=== PATIENT | female | born 1980 | race Caucasian/White ===

== ENCOUNTER 2017-11-08 10:15 | Emergency (ER) | payer MEDICAID, OTHER ==
[~2017-11-08] VITALS: Ht 162.6 cm; Wt 50.0 kg
[~2017-11-08 10:15] MED LIST: CIPR-278 PO; FERR-89 PO; OLAN10TA3 PO; OLAN5TAB2 PO
[2017-11-08 13:01] LABS: BASOPHILS % (AUTO) 0.7 % (0.0-2.0); EOSINOPHILS % (AUTO) 1.5 % (1.0-6.0); HEMATOCRIT 38.6 % (36-46); HEMOGLOBIN 13.2 g/dL (12.0-16.0); LYMPHOCYTES # (AUTO) 1.9 K/uL (1.0-4.8); MEAN CORPUSCULAR HEMOGLOBIN 32.9 pg (26.0-34.0); MEAN CORPUSCULAR HGB CONC 34.3 G/dL (31.0-37.0); MEAN CORPUSCULAR VOLUME 96 fL (80-100); MONOCYTES # (AUTO) 0.6 K/uL (0.1-1.0); MONOCYTES % (AUTO) 7.8 % (2.0-9.0); NEUTROPHILS # (AUTO) 5.6 K/uL (1.8-7.7); PLATELET COUNT (AUTO) 264 K/uL (150-450); RED BLOOD CELL COUNT(AUTO) 4.02 MIL/uL (4.00-5.20); RED CELL DISTRIBUTION WIDTH 13.9 % (11.5-14.5); WHITE BLOOD COUNT (AUTO) 8.3 K/uL (4.5-11.0)
[2017-11-08 13:12] LABS: ANION GAP 8 mmol/L (8-16); CALCIUM, TOTAL 8.5 mg/dL (8.8-10.5); CARBON DIOXIDE 28 mmol/L (22-29); CHLORIDE 103 mmol/L (98-107); CREATININE 0.71 mg/dL (0.60-1.30); GLOMERULAR FILTR. RATE CALC > 60 mL/min (>60); POTASSIUM 3.7 mmol/L (3.5-5.1); SODIUM SERUM 139 mmol/L (136-145); UREA NITROGEN, BLOOD 12 mg/dL (7-18)
[2017-11-08 13:17] LABS: ALANINE AMINOTRANSFERASE 29 U/L (12-78); ALBUMIN 3.6 g/dL (3.4-5.0); ASPARTATE AMINOTRANSFERASE 19 U/L (15-37); BILIRUBIN,TOTAL 0.3 mg/dL (0.1-1.0); TOTAL PROTEIN, SERUM 7.1 g/dL (6.4-8.2)
[2017-11-08 13:55] VITALS: BP 111/68
== END 2017-11-08 14:32 | disposition home or self-care (01) ==
LOC: EEVIPCON 10:15 → EMS 10:18
DX: F20.1 Disorganized schizophrenia (principal); F15.10 Other stimulant abuse, uncomplicated; F10.10 Alcohol abuse, uncomplicated; F31.9 Bipolar disorder, unspecified; F17.210 Nicotine dependence, cigarettes, uncomplicated; Z59.0 Homelessness; Y90.0 Blood alcohol level of less than 20 mg/100 ml
CPT/HCPCS: 36415; 80053; 80307; 85025; 99285; G0480

== ENCOUNTER 2017-11-08 21:53 | Inpatient (IN) | payer MEDICAID, OTHER ==
[~2017-11-08] VITALS: Ht 162.6 cm; Wt 56.7 kg
[2017-11-09] MEDS ORDERED: ZOLPIDEM TARTRATE 10 MG TABLET PO PRN (01:00)
[2017-11-09] MEDS ORDERED: HALOPERIDOL 5 MG TABLET PO PRN (01:00)
[2017-11-09] MEDS ORDERED: IBUPROFEN 600 MG TABLET PO ONE (01:15)
[2017-11-09 01:26] LABS: APPEARANCE,URINE CLEAR (CLEAR); GLUCOSE, URINE (UA) NEGATIVE (NEGATIVE); KETONES,URINE 15 mg/dL (NEGATIVE); LEUKOCYTE ESTERASE ,URINE NEGATIVE (NEGATIVE); OCCULT BLOOD,URINE NEGATIVE (NEGATIVE); PH,URINE 6.5 (5.0-8.0); PROTEIN,URINE NEGATIVE (NEGATIVE)
[2017-11-09 01:27] LABS: ADD UA MICROSCOPIC NO
[2017-11-09 02:57] VITALS: BP 116/71
[2017-11-09] MEDS: LORazepam 2 MG TABLET PO PRN (03:27)
[2017-11-09 07:55] LABS: CHOL/HDL RATIO 3.1 (3.9-5.7); THYROID STIMULATING HORMONE 0.6 uIU/mL (0.36-3.74)
[2017-11-09 08:09] VITALS: BP 118/62
[2017-11-09 09:44] VITALS: BP 118/62
[2017-11-09 16:04] VITALS: BP 121/72
[2017-11-09 16:40] VITALS: BP 121/72
[2017-11-09] MEDS ORDERED: IBUPROFEN 400 MG TABLET PO PRN (16:45)
[2017-11-09] MEDS ORDERED: ACETAMINOPHEN 325 MG TABLET PO PRN (16:45)
[2017-11-09] MEDS: FERROUS SULFATE 325 MG EC TABLET PO SCH (17:10)
[2017-11-09] MEDS: OLANZapine 7.5 MG TABLET PO SCH (20:18)
[2017-11-10] MEDS: FERROUS SULFATE 325 MG EC TABLET PO SCH ×3 (06:37→17:00)
[2017-11-10 06:44] VITALS: BP 120/60
[2017-11-10] MEDS: LORazepam 2 MG TABLET PO PRN (08:08)
[2017-11-10 08:21] LABS: BASOPHILS % (AUTO) 0.6 % (0.0-2.0); EOSINOPHILS % (AUTO) 1.3 % (1.0-6.0); HEMATOCRIT 38.4 % (36-46); HEMOGLOBIN 13.3 g/dL (12.0-16.0); LYMPHOCYTES # (AUTO) 1.8 K/uL (1.0-4.8); LYMPHOCYTES % (AUTO) 31.1 % (22.0-44.0); MEAN CORPUSCULAR HEMOGLOBIN 33.2 pg (26.0-34.0); MEAN CORPUSCULAR HGB CONC 34.7 G/dL (31.0-37.0); MEAN CORPUSCULAR VOLUME 96 fL (80-100); MONOCYTES # (AUTO) 0.4 K/uL (0.1-1.0); MONOCYTES % (AUTO) 7.5 % (2.0-9.0); NEUTROPHILS # (AUTO) 3.4 K/uL (1.8-7.7); NEUTROPHILS % (AUTO) 59.5 % (40.0-70.0); PLATELET COUNT (AUTO) 237 K/uL (150-450); RED BLOOD CELL COUNT(AUTO) 4.02 MIL/uL (4.00-5.20); WHITE BLOOD COUNT (AUTO) 5.8 K/uL (4.5-11.0)
[2017-11-10 08:23] VITALS: BP 100/59
[2017-11-10 16:25] VITALS: BP 109/64
[2017-11-10] MEDS: NICOTINE 14 MG/24 HOUR PATCH TD SCH (16:36)
[2017-11-10] MEDS: OLANZapine 7.5 MG TABLET PO SCH (21:00)
[2017-11-11 06:18] VITALS: BP 120/80
[2017-11-11] MEDS: FERROUS SULFATE 325 MG EC TABLET PO SCH ×2 (07:02→16:32)
[2017-11-11] MEDS: GABAPENTIN 400 MG CAPSULE PO SCH ×3 (08:43→17:00)
[2017-11-11] MEDS: DULoxetine HCL 30 MG CAPSULE PO SCH (08:43)
[2017-11-11 08:44] VITALS: BP 121/68
[2017-11-11] MEDS: NICOTINE 14 MG/24 HOUR PATCH TD SCH (08:52)
[2017-11-11 16:08] VITALS: BP 124/71
[2017-11-11] MEDS: LORazepam 2 MG TABLET PO PRN (19:57)
[2017-11-11] MEDS: OLANZapine 7.5 MG TABLET PO SCH (20:38)
[2017-11-12 01:27] VITALS: BP 112/73
[2017-11-12] MEDS: FERROUS SULFATE 325 MG EC TABLET PO SCH ×2 (06:39→16:30)
[2017-11-12 08:04] VITALS: BP 122/69
[2017-11-12] MEDS: GABAPENTIN 400 MG CAPSULE PO SCH ×3 (08:29→16:30)
[2017-11-12] MEDS: NICOTINE 14 MG/24 HOUR PATCH TD SCH (08:29)
[2017-11-12] MEDS: DULoxetine HCL 30 MG CAPSULE PO SCH (08:29)
[2017-11-12] MEDS ORDERED: OLAN7.5T2 PO (12:36)
[2017-11-12 16:01] VITALS: BP 104/63
[2017-11-12] MEDS: LORazepam 2 MG TABLET PO PRN (16:27)
[2017-11-12] MEDS: OLANZapine 7.5 MG TABLET PO SCH (20:38)
[2017-11-13] MEDS: FERROUS SULFATE 325 MG EC TABLET PO SCH ×2 (06:37→16:13)
[2017-11-13 06:57] VITALS: BP 100/63
[2017-11-13] MEDS: GABAPENTIN 400 MG CAPSULE PO SCH ×3 (08:20→16:13)
[2017-11-13] MEDS: DULoxetine HCL 30 MG CAPSULE PO SCH (08:20)
[2017-11-13] MEDS: NICOTINE 14 MG/24 HOUR PATCH TD SCH (08:52)
[2017-11-13 14:52] VITALS: BP 111/67
[2017-11-13 16:00] VITALS: BP 103/64
[2017-11-13] MEDS: OLANZapine 7.5 MG TABLET PO SCH (20:06)
[2017-11-14 05:59] VITALS: BP 124/74
[2017-11-14] MEDS: FERROUS SULFATE 325 MG EC TABLET PO SCH ×2 (07:00→16:15)
[2017-11-14] MEDS: DULoxetine HCL 30 MG CAPSULE PO SCH (08:49)
[2017-11-14] MEDS: GABAPENTIN 400 MG CAPSULE PO SCH ×3 (08:50→16:15)
[2017-11-14] MEDS: NICOTINE 14 MG/24 HOUR PATCH TD SCH (09:00)
[2017-11-14 09:13] VITALS: BP 121/73
[2017-11-14 16:02] VITALS: BP 107/55
[2017-11-14] MEDS: OLANZapine 7.5 MG TABLET PO SCH (20:12)
[2017-11-15 06:20] VITALS: BP 104/63
[2017-11-15] MEDS: FERROUS SULFATE 325 MG EC TABLET PO SCH (06:31)
[2017-11-15] MEDS: NICOTINE 14 MG/24 HOUR PATCH TD SCH (08:44)
[2017-11-15] MEDS: DULoxetine HCL 30 MG CAPSULE PO SCH (08:44)
[2017-11-15] MEDS: GABAPENTIN 400 MG CAPSULE PO SCH ×2 (08:44→12:21)
[2017-11-15 09:51] VITALS: BP 104/60
[2017-11-15] MEDS ORDERED: DULO30CA2 PO (13:05)
[2017-11-15] MEDS ORDERED: GABA-533 PO (13:05)
== END 2017-11-15 15:26 | disposition home or self-care (01) | DRG 750 ==
LOC: EMS 21:54 → B3A 11-09 01:49
PROVIDERS: ADMIT Psychiatry & Neurology Psychiatry; ATTEND Psychiatry & Neurology Psychiatry
DX: F25.9 Schizoaffective disorder, unspecified (principal); E83.51 Hypocalcemia; D64.9 Anemia, unspecified; F19.10 Other psychoactive substance abuse, uncomplicated; G89.29 Other chronic pain; F17.210 Nicotine dependence, cigarettes, uncomplicated; G47.00 Insomnia, unspecified; Z59.0 Homelessness; Z79.899 Other long term (current) drug therapy
CPT/HCPCS: 84443; 99285

== ENCOUNTER 2020-06-24 10:57 | Emergency (ER) | payer SELFPAY ==
[~2020-06-24] VITALS: Ht 162.6 cm; Wt 52.3 kg
[~2020-06-24 10:57] MED LIST changes: -CIPR-278 PO; +DULO30CA96 PO; -FERR-89 PO; +GABA-1201 PO; -OLAN10TA3 PO; -OLAN5TAB2 PO; +OLAN7.5T2 PO
[2020-06-24] MEDS ORDERED: IBUPROFEN 600 MG TABLET PO ONE (11:45)
[2020-06-24 12:06] VITALS: BP 117/76
== END 2020-06-24 12:08 | disposition home or self-care (01) ==
LOC: EMS 10:59
DX: F20.9 Schizophrenia, unspecified (principal); F31.9 Bipolar disorder, unspecified; F15.90 Other stimulant use, unspecified, uncomplicated; F17.210 Nicotine dependence, cigarettes, uncomplicated; Z79.899 Other long term (current) drug therapy

== ENCOUNTER 2023-03-29 03:21 | Inpatient (IN) | payer MEDICAID ==
[~2023-03-29] VITALS: Ht 162.6 cm; Wt 63.5 kg
[~2023-03-29 03:21] MED LIST changes: +DULO-114 PO; -DULO30CA96 PO; -OLAN7.5T2 PO; +OLAN7.5T22 PO
[2023-03-29] MEDS: LORazepam 2 MG TABLET PO PRN ×3 (12:36→20:12)
[2023-03-29 13:12] VITALS: BP 124/86
[2023-03-29] MEDS ORDERED: PERMETHRIN 5% 60 GM CREAM TP ONE (14:15)
[2023-03-29] MEDS ORDERED: MAG HYDROX/AL HYDROX/SIMETH ES 30 ML SUSPENSION UDCUP PO PRN (14:30)
[2023-03-29] MEDS ORDERED: DOCUSATE SODIUM 100 MG CAPSULE PO PRN (14:30)
[2023-03-29] MEDS ORDERED: MAGNESIUM HYDROXIDE SUSPENSION 30 ML UDCUP PO PRN (14:30)
[2023-03-29] MEDS ORDERED: PETROLATUM,WHITE 28 GM JELLY TP PRN (14:30)
[2023-03-29] MEDS ORDERED: LOPERAMIDE HCL 2 MG CAPSULE PO PRN (14:30)
[2023-03-29] MEDS ORDERED: GuaiFENesin/D-METHORPHAN [SUGAR-FREE] 200-20MG/10 ML SYRUP UDCUP PO PRN (14:30)
[2023-03-29] MEDS ORDERED: CloNIDine HCL 0.1 MG TABLET PO PRN (14:30)
[2023-03-29] MEDS ORDERED: ONDANSETRON HCL 4 MG TABLET PO PRN (14:30)
[2023-03-29] MEDS ORDERED: IBUPROFEN 400 MG TABLET PO PRN (14:30)
[2023-03-29] MEDS ORDERED: ALBUTEROL SULFATE HFA 90 MCG/PUFF 8 GM INHALER IH PRN (14:30)
[2023-03-29] MEDS ORDERED: ACETAMINOPHEN 325 MG TABLET PO PRN (14:30)
[2023-03-29] MEDS ORDERED: NICOTINE 14 MG/24 HOUR PATCH TD PRN (14:30)
[2023-03-29] MEDS: GABAPENTIN 400 MG CAPSULE PO SCH (16:02)
[2023-03-29 20:00] VITALS: BP 120/90
[2023-03-29] MEDS: ZOLPIDEM TARTRATE 10 MG TABLET PO PRN (20:12)
[2023-03-30 07:22] LABS: BASOPHILS % (AUTO) 0.8 % (0.0-2.0); EOSINOPHILS % (AUTO) 4.1 % (1.0-6.0); HEMATOCRIT 32.5 % (36-46); HEMOGLOBIN 10.8 g/dL (12.0-16.0); LYMPHOCYTES # (AUTO) 1.7 K/uL (1.0-4.8); LYMPHOCYTES % (AUTO) 41.7 % (22.0-44.0); MEAN CORPUSCULAR HEMOGLOBIN 27.8 pg (26.0-34.0); MEAN CORPUSCULAR HGB CONC 33.1 G/dL (31.0-37.0); MEAN CORPUSCULAR VOLUME 84 fL (80-100); MONOCYTES # (AUTO) 0.4 K/uL (0.1-1.0); MONOCYTES % (AUTO) 10.6 % (2.0-9.0); NEUTROPHILS # (AUTO) 1.8 K/uL (1.8-7.7); NEUTROPHILS % (AUTO) 42.8 % (40.0-70.0); PLATELET COUNT (AUTO) 233 K/uL (150-450); RED BLOOD CELL COUNT(AUTO) 3.88 MIL/uL (4.00-5.20); RED CELL DISTRIBUTION WIDTH 16.1 % (11.5-14.5)
[2023-03-30 07:53] LABS: ALANINE AMINOTRANSFERASE 15 U/L (12-78); ALBUMIN 3.2 g/dL (3.4-5.0); ALKALINE PHOSPHATASE 56 U/L (46-116); ANION GAP 9 mmol/L (8-16); ASPARTATE AMINOTRANSFERASE 16 U/L (15-37); BILIRUBIN,TOTAL 0.3 mg/dL (0.1-1.0); CALCIUM, TOTAL 8.4 mg/dL (8.8-10.5); CARBON DIOXIDE 24 mmol/L (22-29); CHLORIDE 104 mmol/L (98-107); CREATININE 0.57 mg/dL (0.60-1.30); FREE T4 (FREE THYROXINE) 0.95 ng/dL (0.76-1.46); GLOMERULAR FILTR. RATE CALC > 60 mL/min (>60); GLUCOSE,RANDOM 106 mg/dL (70-110); POTASSIUM 4.1 mmol/L (3.5-5.1); SODIUM SERUM 137 mmol/L (136-145); THYROID STIMULATING HORMONE 0.86 uIU/mL (0.36-3.74); TOTAL PROTEIN, SERUM 6.5 g/dL (6.4-8.2)
[2023-03-30 08:04] LABS: HEMOGLOBIN A1C 5.1 % (3.8-5.6)
[2023-03-30 08:41] LABS: PLATELET MORPHOLOGY COMMENT GIANT PLTS PRESENT
[2023-03-30] MEDS: GABAPENTIN 400 MG CAPSULE PO SCH ×3 (08:54→16:29)
[2023-03-30] MEDS: DULoxetine HCL 20 MG CAPSULE PO SCH (12:29)
[2023-03-30] MEDS: LORazepam 2 MG TABLET PO PRN ×2 (12:29→16:35)
[2023-03-30 15:02] LABS: AMPHET/METH SCREEN,URINE NEGATIVE (NEGATIVE); BARBITURATE SCREEN, URINE NEGATIVE (NEGATIVE); BENZODIAZEPINES SCREEN,URINE NEGATIVE (NEGATIVE); CANNABINOID SCREEN,URINE NEGATIVE (NEGATIVE); COCAINE SCREEN,URINE NEGATIVE (NEGATIVE); METHADONE SCREEN, URINE NEGATIVE (NEGATIVE); OPIATE SCREEN,URINE NEGATIVE (NEGATIVE); PHENCYCLIDINE SCREEN,URINE NEGATIVE (NEGATIVE)
[2023-03-30] MEDS: OLANZapine 7.5 MG TABLET PO SCH (20:41)
[2023-03-30 21:23] VITALS: BP 114/63
[2023-03-31 02:06] LABS: HEPATITIS C AB (EIA) Reactive (Non Reactive)
[2023-03-31] MEDS: DULoxetine HCL 20 MG CAPSULE PO SCH (08:27)
[2023-03-31] MEDS: GABAPENTIN 400 MG CAPSULE PO SCH ×3 (08:28→16:14)
[2023-03-31 08:54] VITALS: BP 100/66
[2023-03-31] MEDS: OLANZapine 7.5 MG TABLET PO SCH (20:30)
[2023-04-01 08:24] VITALS: BP 100/60
[2023-04-01] MEDS: DULoxetine HCL 20 MG CAPSULE PO SCH (08:29)
[2023-04-01] MEDS: GABAPENTIN 400 MG CAPSULE PO SCH ×3 (08:29→16:28)
[2023-04-01] MEDS: OLANZapine 7.5 MG TABLET PO SCH (20:06)
[2023-04-02] MEDS: DULoxetine HCL 20 MG CAPSULE PO SCH (08:07)
[2023-04-02] MEDS: GABAPENTIN 400 MG CAPSULE PO SCH ×3 (08:07→16:02)
[2023-04-02 08:40] VITALS: BP 104/68
[2023-04-02 08:41] VITALS: BP 104/68
[2023-04-02 20:00] VITALS: BP 101/62
[2023-04-02] MEDS: OLANZapine 7.5 MG TABLET PO SCH (20:10)
[2023-04-03] MEDS: DULoxetine HCL 20 MG CAPSULE PO SCH (08:34)
[2023-04-03] MEDS: GABAPENTIN 400 MG CAPSULE PO SCH ×3 (08:34→16:28)
[2023-04-03 08:53] VITALS: BP 93/63
[2023-04-03 13:06] LABS: HEPATITIS C RT-PCR,QNT HCV Not Detected IU/mL
[2023-04-03 20:26] VITALS: BP 102/67
[2023-04-03] MEDS: OLANZapine 7.5 MG TABLET PO SCH (20:27)
[2023-04-04] MEDS: GABAPENTIN 400 MG CAPSULE PO SCH ×3 (08:14→16:20)
[2023-04-04] MEDS: DULoxetine HCL 20 MG CAPSULE PO SCH (08:14)
[2023-04-04 08:18] VITALS: BP 100/70
[2023-04-04 20:14] VITALS: BP 97/56
[2023-04-04] MEDS: OLANZapine 7.5 MG TABLET PO SCH (20:40)
[2023-04-05] MEDS: DULoxetine HCL 20 MG CAPSULE PO SCH (09:00)
[2023-04-05] MEDS: GABAPENTIN 400 MG CAPSULE PO SCH ×3 (09:00→17:21)
[2023-04-05] MEDS: LORazepam 2 MG TABLET PO PRN ×2 (13:38→20:50)
[2023-04-05] MEDS: ZOLPIDEM TARTRATE 10 MG TABLET PO PRN (20:50)
[2023-04-05] MEDS: OLANZapine 7.5 MG TABLET PO SCH (20:50)
[2023-04-05 21:09] VITALS: BP 96/63
[2023-04-06] MEDS: DULoxetine HCL 20 MG CAPSULE PO SCH (08:46)
[2023-04-06] MEDS: GABAPENTIN 400 MG CAPSULE PO SCH ×3 (08:46→16:00)
[2023-04-06] MEDS: OLANZapine 7.5 MG TABLET PO SCH (20:39)
[2023-04-06 21:03] VITALS: BP 103/56
[2023-04-07] MEDS: GABAPENTIN 400 MG CAPSULE PO SCH ×3 (08:37→16:02)
[2023-04-07] MEDS: DULoxetine HCL 20 MG CAPSULE PO SCH (08:38)
[2023-04-07 08:56] LABS: GLUCOMETER DEV NAME(LOC) POC.BV
[2023-04-07 09:03] VITALS: BP 93/58
[2023-04-07] MEDS: LORazepam 2 MG TABLET PO PRN (17:30)
[2023-04-07] MEDS: OLANZapine 7.5 MG TABLET PO SCH (21:14)
[2023-04-07 22:41] VITALS: BP 110/65
[2023-04-08] MEDS: DULoxetine HCL 20 MG CAPSULE PO SCH (08:13)
[2023-04-08] MEDS: LORazepam 2 MG TABLET PO PRN ×3 (08:13→20:13)
[2023-04-08] MEDS: GABAPENTIN 400 MG CAPSULE PO SCH ×3 (08:13→17:01)
[2023-04-08 08:14] VITALS: BP 100/68
[2023-04-08] MEDS: HALOPERIDOL 5 MG TABLET PO PRN ×2 (09:54→20:15)
[2023-04-08] MEDS: ZOLPIDEM TARTRATE 10 MG TABLET PO PRN (20:13)
[2023-04-08] MEDS: OLANZapine 7.5 MG TABLET PO SCH (20:15)
[2023-04-08 20:17] VITALS: BP 100/65
[2023-04-09 08:00] VITALS: BP 90/60
[2023-04-09] MEDS: GABAPENTIN 400 MG CAPSULE PO SCH ×3 (08:30→16:17)
[2023-04-09] MEDS: DULoxetine HCL 20 MG CAPSULE PO SCH (08:33)
[2023-04-09] MEDS: LORazepam 2 MG TABLET PO PRN (11:54)
[2023-04-09 12:54] VITALS: BP 108/68
[2023-04-09] MEDS: OLANZapine 7.5 MG TABLET PO SCH (20:11)
[2023-04-09 22:25] VITALS: BP 108/68
[2023-04-10] MEDS: GABAPENTIN 400 MG CAPSULE PO SCH ×3 (08:11→16:05)
[2023-04-10] MEDS: LORazepam 2 MG TABLET PO PRN (08:12)
[2023-04-10] MEDS: DULoxetine HCL 20 MG CAPSULE PO SCH (08:12)
[2023-04-10 08:26] VITALS: BP 123/79
[2023-04-10] MEDS ORDERED: TraZODone HCL 50 MG TABLET PO PRN (11:30)
[2023-04-10] MEDS: HydrOXYzine PAMOATE 50 MG CAPSULE PO PRN (16:04)
[2023-04-10] MEDS: HALOPERIDOL 5 MG TABLET PO PRN (16:56)
[2023-04-10 20:16] VITALS: BP 107/68
[2023-04-10] MEDS: OLANZapine 7.5 MG TABLET PO SCH (20:33)
[2023-04-11] MEDS: DULoxetine HCL 20 MG CAPSULE PO SCH (08:17)
[2023-04-11] MEDS: GABAPENTIN 400 MG CAPSULE PO SCH ×3 (08:17→16:31)
[2023-04-11] MEDS: HydrOXYzine PAMOATE 50 MG CAPSULE PO PRN (08:17)
[2023-04-11 09:52] VITALS: BP 92/60
[2023-04-11 12:43] VITALS: BP 103/68
[2023-04-11 16:26] VITALS: BP 101/64
[2023-04-11] MEDS: OLANZapine 7.5 MG TABLET PO SCH (20:14)
[2023-04-11 23:56] VITALS: BP 108/64
[2023-04-12] MEDS: GABAPENTIN 400 MG CAPSULE PO SCH ×3 (08:41→16:35)
[2023-04-12] MEDS: DULoxetine HCL 20 MG CAPSULE PO SCH (08:41)
[2023-04-12 20:21] VITALS: BP 102/64
[2023-04-12] MEDS: OLANZapine 7.5 MG TABLET PO SCH (20:43)
[2023-04-13 08:31] VITALS: BP 102/65
[2023-04-13] MEDS: GABAPENTIN 400 MG CAPSULE PO SCH (08:38)
[2023-04-13] MEDS: DULoxetine HCL 20 MG CAPSULE PO SCH (08:39)
[2023-04-13] MEDS ORDERED: DULO20CA71 PO (12:47)
[2023-04-13] MEDS ORDERED: OLAN7.5T22 PO (12:47)
== END 2023-04-13 12:30 | disposition home or self-care (01) | DRG 750 ==
LOC: B3A 11:56
PROVIDERS: ADMIT Psychiatry & Neurology Child & Adolescent Psychiatry; ATTEND Psychiatry & Neurology Child & Adolescent Psychiatry
DX: F25.0 Schizoaffective disorder, bipolar type (principal); D64.9 Anemia, unspecified; Z20.822 Contact with and (suspected) exposure to COVID-19; F10.10 Alcohol abuse, uncomplicated; G47.00 Insomnia, unspecified; Z79.899 Other long term (current) drug therapy
CPT/HCPCS: 80053; 80307; 83036; 84439; 84443; 84703; 85025; 86803; 87340; 87522

== ENCOUNTER 2023-03-29 05:15 | Emergency (ER) | payer MEDICAID, OTHER ==
[~2023-03-29] VITALS: Ht 162.6 cm; Wt 63.6 kg
[2023-03-29 06:56] LABS: BASOPHILS % (AUTO) 0.7 % (0.0-2.0); EOSINOPHILS % (AUTO) 2.7 % (1.0-6.0); HEMATOCRIT 36.1 % (36-46); HEMOGLOBIN 11.7 g/dL (12.0-16.0); LYMPHOCYTES # (AUTO) 2.2 K/uL (1.0-4.8); LYMPHOCYTES % (AUTO) 36.6 % (22.0-44.0); MEAN CORPUSCULAR HEMOGLOBIN 27.2 pg (26.0-34.0); MEAN CORPUSCULAR HGB CONC 32.3 G/dL (31.0-37.0); MEAN CORPUSCULAR VOLUME 84 fL (80-100); MONOCYTES # (AUTO) 0.6 K/uL (0.1-1.0); MONOCYTES % (AUTO) 10.6 % (2.0-9.0); NEUTROPHILS # (AUTO) 2.9 K/uL (1.8-7.7); NEUTROPHILS % (AUTO) 49.4 % (40.0-70.0); PLATELET COUNT (AUTO) 272 K/uL (150-450); RED BLOOD CELL COUNT(AUTO) 4.28 MIL/uL (4.00-5.20); RED CELL DISTRIBUTION WIDTH 15.8 % (11.5-14.5)
[2023-03-29 07:05] LABS: ANION GAP 10 mmol/L (8-16); CALCIUM, TOTAL 9.2 mg/dL (8.8-10.5); CARBON DIOXIDE 24 mmol/L (22-29); CHLORIDE 102 mmol/L (98-107); CREATININE 0.58 mg/dL (0.60-1.30); GLOMERULAR FILTR. RATE CALC > 60 mL/min (>60); GLUCOSE,RANDOM 95 mg/dL (70-110); POTASSIUM 3.8 mmol/L (3.5-5.1); SODIUM SERUM 136 mmol/L (136-145); UREA NITROGEN, BLOOD 20 mg/dL (7-18)
[2023-03-29 07:14] LABS: ALANINE AMINOTRANSFERASE 19 U/L (12-78); ALBUMIN 4.1 g/dL (3.4-5.0); ALKALINE PHOSPHATASE 67 U/L (46-116); ASPARTATE AMINOTRANSFERASE 18 U/L (15-37); BILIRUBIN,TOTAL 0.4 mg/dL (0.1-1.0); TOTAL PROTEIN, SERUM 7.9 g/dL (6.4-8.2)
[2023-03-29 09:46] VITALS: BP 104/58
[2023-03-29 10:15] LABS: COVID AG,FIA SOURCE NASAL SWAB
== END 2023-03-29 11:42 | disposition home or self-care (01) ==
LOC: EMS 05:18
DX: F20.9 Schizophrenia, unspecified (principal); F15.90 Other stimulant use, unspecified, uncomplicated; F31.9 Bipolar disorder, unspecified; F17.210 Nicotine dependence, cigarettes, uncomplicated; Z73.6 Limitation of activities due to disability; Z20.822 Contact with and (suspected) exposure to COVID-19
CPT/HCPCS: 99285; 87426; 80053; 85025; 36415; G0480